=== PATIENT | male | born 1980 | race Caucasian/White ===

== ENCOUNTER 2023-06-10 09:37 | Outpatient (OUT) | payer OTHER, SELFPAY ==
--- NOTE | 2023-06-10 09:45 | MR_ITS ---
[address] [address] Patient Name: ORIN FITZGERALD MRN: [id number] date: 1980 Sex: M Assigned Patient Location: MRI Current Patient Location: MRI Accession/Order Number: [id number] Exam Date: 06/10/2023 10:00 Report Date: 06/10/2023 11:11 At the request of: NON-STAFF PHYSICIAN Procedure: MR lumbar spine wo con EXAM: MR lumbar spine wo con HISTORY: other intervertebral disc displacement, lumbar region M51.26 COMPARISON: CT myelogram lumbar spine October 30, 2022 MRI lumbar spine 05/04/2022. TECHNIQUE: Multiplanar multisequence MR imaging of the lumbar spine was performed without intravenous contrast. FINDINGS: Alignment: Approximately 3 mm retrolisthesis of L4 on L5. Trace retrolisthesis of L2-3 on L4. Vertebrae: Vertebral body heights are maintained. No marrow signal abnormalities to suggest neoplasm. Conus medullaris: Conus terminates in normal position at L1. Normal signal and contour. Degenerative changes: T12-L1: No substantial canal or foraminal stenosis. L1-L2: No substantial canal or foraminal stenosis. L2-L3: No substantial canal or foraminal stenosis. L3-L4: Disc desiccation without significant disc height loss. Small central protrusion. No substantial canal stenosis. Mild bilateral foraminal stenosis. L4-L5: Disc desiccation without substantial disc height loss. Minimal disc bulge with broad-based central protrusion slightly eccentric to left. Disc contacts but does not displace or deform the bilateral descending L5 nerve roots. Mild left and minimal right facet arthropathy. No substantial canal stenosis. Moderate to advanced left and mild right foraminal stenosis. L5-S1: Disc desiccation with minimal disc height loss. Small central protrusion. Mild left and minimal right facet arthropathy. Moderate left and mild right foraminal stenosis. Upper Sacrum: No focal lesion identified. Additional comments: Visualized soft tissues of the abdomen are grossly unremarkable. MR/MR lumbar spine wo con IMPRESSION: 1. Small disc herniations at L3-L4, L4-L5 and L5-S1 detailed above. At the L4-L5 level the distal contacts but does not displace or deform the descending bilateral L5 nerve roots. 2. Moderate to advanced left foraminal stenosis at L4-L5 and moderate left foraminal stenosis at L5-S1. Electronically authenticated by: RIAN ROBERT Date: 06/10/2023 11:11
== END 2023-06-10 09:38 | disposition home or self-care (01) ==
LOC: MRI 09:40
PROVIDERS: PCP Family Medicine
DX: M51.26 Other intervertebral disc displacement, lumbar region (principal); M51.27 Other intervertebral disc displacement, lumbosacral region; M54.16 Radiculopathy, lumbar region
CPT/HCPCS: 72148

== ENCOUNTER 2024-07-26 13:23 | Outpatient (OUT) | payer OTHER, SELFPAY ==
--- NOTE | 2024-07-26 13:27 | MR_ITS ---
The [address] [address] Patient Name: ORIN FITGZERALD MRN: [id number] date: 1980 Sex: M Assigned Patient Location: MRI Current Patient Location: MRI Accession/Order Number: [id number] Exam Date: 07/26/2024 16:40 Report Date: 07/26/2024 16:46 At the request of: ANSHU HOOVER Procedure: MR lumbar spine wo con EXAMINATION: MRI LUMBAR SPINE WITHOUT IV CONTRAST CLINICAL HISTORY: Intervertebral Disc Degeneration Lumbosacral Region COMPARISON: MRI lumbar spine 06/10/2023 TECHNIQUE: Multiecho imaging was performed in the sagittal and axial planes without contrast administration. FINDINGS: Vertebral body heights appear maintained. No bone marrow edema. Spinal cord remains normal position without abnormal cord signal. No paraspinal mass. Visualized retroperitoneum demonstrates At L1-L2: No posterior disc pathology. No neural canal or foraminal stenosis. At L2-L3: 3V with hypertrophy and facet joint degenerative changes without posterior disc pathology. Findings are causing mild bilateral neural foraminal stenosis and canal stenosis. At L3-L4: L4 diffuse broad-based disc bulge is present with ligamentum flavum hypertrophy and facet joint degenerative changes causing mild canal and moderate left and mild right neural foraminal stenosis. At L4-L5: Diffuse broad-based disc bulge is present with facet joint degenerative changes causing mild canal and bilateral neural foraminal stenosis. At L5-S1: No posterior disc pathology. Facet joint degenerative changes. No significant canal stenosis. Moderate left-sided neural foraminal stenosis. MR/MR lumbar spine wo con IMPRESSION: Multilevel degenerative disease as described above. Findings are similar to the prior study from 06/10/2023. Impression dictated by: Alexander Chavis Jr., D.O.07/26/2024 4:46 PM Dictation Location: [place] [address] Electronically authenticated by: [id number] Y Date: 07/26/2024 16:46
== END 2024-07-26 13:24 | disposition home or self-care (01) ==
LOC: MRI 13:23
PROVIDERS: PCP Family Medicine
DX: M51.26 Other intervertebral disc displacement, lumbar region (principal); M51.27 Other intervertebral disc displacement, lumbosacral region; M51.369 Other intervertebral disc degeneration, lumbar region without mention of lumbar back pain or lower extremity pain
CPT/HCPCS: 72148

== ENCOUNTER 2024-10-07 09:20 | Outpatient (OUT) | payer BC, SELFPAY ==
--- OUTSIDE RECORDS SUMMARY | 2024-10-07 09:26 | XMS_ITS | CCD ---
Author Organization [facility] Care Team Providers Care Senior Coldfusion Developer Name Role Phone THIERNOC, DR LAURA Admitting Unavailable MISC, DR LAURA Consulting Unavailable MISC, DR LAURA Attending Unavailable HOY ., DR BENÍTEZ Primary Care Unavailable HOY ., DR BENÍTEZ Referring Unavailable CHELI, DR PAVAN Oh Consulting Unavailable MISC, DR LAURA Admitting Unavailable MISC, DR LAURA Attending Unavailable CONCORD, DR MARITZA Wesley Consulting Unavailable HOY ., DR BENÍTEZ Primary Care Unavailable MISC, DR LAURA Consulting Unavailable PAY ., DR IGLESIAS Admitting Unavailable PAY ., DR IGLESIAS Consulting Unavailable PAY ., DR IGLESIAS Attending Unavailable HOY ., DR BENÍTEZ Primary Care Unavailable Anu Diaz Unavailable Jackelin Montana MD Primary Care Provider Krysten Saleh PA-C Unavailable JACKELIN MONTANA Primary Care Unavailable YAMILETH SANDS Attending Unavailable KRYSTEN SALEH Referring Unavailable JACKELIN MONTANA Primary Care Unavailable PIERRE COOK Referring Unavailable Jackelin Montana MD Primary Care Provider [phone] ROGER HERNANDEZ Attending Unavailable JACKELIN MONTANA Primary Care Unavailable ROGER HERNANDEZ Admitting Unavailable ROGER HERNANDEZ Attending Unavailable JACKELIN MONTANA Primary Care Unavailable ROGER HERNANDEZ Admitting Unavailable ROGER HERNANDEZ Attending Unavailable JACKELIN MONTANA Primary Care Unavailable JACKELIN MONTANA Primary Care Unavailable Krysten Saleh Attending Unavailable Allergies Allergy Classification Reported Allergen(s) Allergy Type Date of Onset Reaction(s) Facility (1 source) Acetaminophen Drug Allergy 4 [facility] Repository (3 sources) Cinnamon Preparation; Translations: [CINNAMON] Drug Allergy 4 [facility] Repository (1 source) Latex Drug allergy (disorder) 4 [facility] Repository (4 sources) Acetaminophen; Translations: [ACETAMINOPHEN] Drug Allergy 9 Vomiting [facility] (2 sources) Cinnamon Preparation Drug Allergy 9 Anaphylaxis [facility] (3 sources) Latex; Translations: [LATEX, NATURAL RUBBER] Drug Allergy 9 Other: See Comments [facility] (1 source) Latex; Translations: [Latex Allergy] Propensity to adverse reactions (disorder) [facility] Repository Medications Current Medications Medication Drug Class(es) Dates Sig (Normalized) Sig (Original) baclofen 10 mg oral tablet (2 sources) gamma-Aminobutyric Acid-ergic Agonist Start: 04-28-2019 take 1 tablet by mouth every eight hours as needed baclofen (LIORESAL) 10 mg tablet Take 1 tablet by mouth three times daily as needed (back muscle spasm). 90 tablet 2 04/28/2019 Active Comment on above: Take 1 tablet by jaki th three times daily as needed (back muscle spasm). meloxicam 7.5 mg oral tablet (2 sources) Nonsteroidal Anti-inflammatory Drug Start: 04-28-2019 take 1 tablet by mouth once daily as needed for pain meloxicam (MOBIC) 7.5 mg tablet Take 1 tablet by mouth once daily as needed for Pain (back pain). 30 tablet 2 04/28/2019 Active Comment on above: Take 1 tablet by jaki th once daily as needed for Pain (back pain). OXcarbazepine 150 mg oral tablet (2 sources) Anti-epileptic Agent take 1 tablet by mouth once daily at bedtime OXcarbazepine (TRILEPTAL) 150 mg tablet Take 150 mg by mouth daily at bedtime. Active Comment on above: Take 150 mg by mouth daily at bedtime. traMADol hydrochloride 50 mg oral tablet (2 sources) Opioid Agonist take 1 tablet by mouth four times daily traMADol (ULTRAM) 50 mg tablet Take 50 mg by mouth four times daily. Active Comment on above: Take 50 mg by mouth four times daily. Completed/Discontinued Medications Medication Drug Class(es) Dates Sig (Normalized) Sig (Original) gabapentin 300 mg oral capsule (1 source) Anti-epileptic Agent Start: 04-28-2019 take 1 capsule by mouth three times daily gabapentin (NEURONTIN) 300 mg capsule Take 1 capsule by mouth three times daily for 90 days. 90 capsule 2 04/28/2019 Active Comment on above: Take 1 capsule by mo [facility] three times daily for 90 days. Problems Active Problems Problem Classification Problem Date Documented Date Episodic/Chronic E Codes: Natural/environment (1 source) Exposure to other specified factors, initial encounter; Translations: [EXPOSURE OTHER SPEC FACTORS INITIAL] Onset: 10-06-2022 Episodic Other nervous system disorders (2 sources) Other chronic pain; Translations: [OTHER CHRONIC PAIN] Onset: 10-06-2022 Chronic Spondylosis; intervertebral disc disorders; other back problems (4 sources) Other intervertebral disc displacement, lumbosacral region; Translations: [OTH IV DISC DISPLACEMENT LS REGION] Onset: 05-04-2022 Chronic Spondylosis; intervertebral disc disorders; other back problems (9 sources) Radiculopathy, lumbar region; Translations: [Radiculopathy, lumbosacral region] Onset: 04-28-2019 Episodic Unclassified (3 sources) LOW BACK PAIN, UNSPECIFIED; Translations: [LOW BACK PAIN, UNSPECIFIED] Onset: 10-06-2022 Unclassified (1 source) Chronic bilateral low back pain without sciatica; Translations: [Chronic bilateral low back pain without sciatica] Onset: 06-11-2023 Past or Other Problems Problem Classification Problem Date Documented Da te Episodic/Chronic Sprains and strains (3 sources) Strain of muscle, fascia and tendon of lower back, initial encounter; Translations: [Lumbar sprain] Onset: 04-28-2019 08-07-2019 Episodic Unclassified (1 source) LOW BACK PAIN, UNSPECIFIED; Translations: [LOW BACK PAIN, UNSPECIFIED] Onset: 12-27-2021 Results Test Name Value Interpretation Reference Range Facility Employee Health Noteon 08-18 Employee Health Note [id number] 30 [id number]# [id number] [facility] Coding Summaryon 07-31-2024 Coding Summary HTMLBase 64 StxpebdhWAo1aNe+PGhlY WQ+UZ1XUFOjB44gdLFseE 8lU3HQSRxZDadfVGUCVBw RXeIbejWnXQ1mkUPlMLYj IC8+LP2aIKQmKcinbOSff 3L7dIO1Q61xiq2lPPusrT S5JTEvRjAvcygec4rlxYs 6IDcuNmluOyBt NKViaI14GPQ2wZ28Sp47u TNqgCQuf2eovBe0EmHiIV FvXMM7cNlyKXlcm2HrCBE bQ36xuUQiy8O3 XFFrgRyusJNeExQuvPV9w R8gZNsvqlcmy3gauetoEb f1vw15wSQyo1E4bEP2Y2T nwgI2AQMjmARg BbelgKSUmK5vkpijo1qzx ummJgGaCHNiWPm0PFx5EO FziUotAaQwAU75JNF3MWD bazLhX5FiFEEe kTqpHyL4i3Z0Tw3FV2RPY sdiT5ZCQEMZJEwdzLT+PC 22tw02B4ZuSygaSpb4AFC yLTL9tOU6fP9o IPXfQOpdy6F8xIN4V6Ebj wDebu1ad8fyGOCbGDonH7 2sjEFpb3Q2XXDduVN6EFU ejAioVoGntW02 Oyc+HEVlhHjjg2TuQhdpb 1vwu6qjyFt5DrelZUXttt OwbBdjOTR9w9RrOi9jXZW vtRF3dPW1mH7v XwAzUxH5EHooX238VlJwi GNfJfgkG87uX1CikNT+PH LgVkb6LXJkkAmiKP6nA3M hZGRpbmctbGVm fZawMJ9yPSRviozwCVFts Y7dIHQpE9e0BkOwIiK5TX mmJ7CpMROdgpgzXx06pL3 dPjQpYnP2OBvz L7XruzZ0GQWiuSWdVOwcS IG2R32vc6Q4PKWtMKDpLS F4qWI4uY8vjTnymemthBO mdDsgdmVydGlj QNazSQlgI341GCKeeBivA kNvZGluZyBEYXRlOiAgMD MvMTAvMjAyNTwvdGQ+PHR dCFV2kZiuUGYz zCSvMJhhAb6znWqbwZakO Y7nLRKlbjayXKDuqL1vHK WoeQPkqIaaPX7cUWVfnit ux270WmQnFHA4 WTOjnLCnU2JwgD0sUgArY KVfFKAiI3MyuSSjHKhkU6 87TSenIuR3VMInmzOrK6N sLWFsaWduOiB0 v2C1Dt9Vf1DyxngfC5Cwm ATcYlKwMuzyELp7I6FkIn wvdHI+NC68NKMtHY68NCq 0RWZ6vPjpFSrv RIHsQ2SsaF6qBmDmSLLcT GRkOyc+PHRhYmxlIHdpZH RoPScxMDAlJyBzdHlsZT0 fFj0mZMCyDPHp jAvcjORlMqLgg3bdENNnZ JtzXR0jyCraI6StqAA2PS Ofp0j9Gr38Q42sC7FdyXF +ZVQrtZV4aHZ5 vB5fHoNmCsI4OZqqP652D dGkuGCjEuraq0blq8wpoO k7DaK7VIWoqyAcmWpaHWB 6x2PcKm91C97t IHdpZHRoPSIxNSUiIHZhb Ajmez5xhR4jKs6+PGNvbC S7hOZ1sL0fZaZzZwX2DIx tG255JjFcwATz Yycxx6uxo8avzMj9MbAkA OAffyWdjFfqKPQ0m3WlIl 37A8RrlPglo4ZmHvr5rm7 5hZEoy8H1hGA0 M2WtAIUgxhnwkDUytAqgS H8oQZNvxyqdTTCirW8qLP UiX2o8ReIzKhA6QIujJ6L xnxB9SBJinLAn LDJyaWAJhF6ucdfld3jhu eewYzZiUDMoPTi7PPf8CZ OexFdzOxGbMHD0VaF5TXT 2bMRopL8zyMbf ydmysU3iZcp+RVP0vQHhw XKZXT4uKkkmyVW+PHRkIH H4tIomDRbdCWItsR7aZJE aV8l0XoMyDvO2 AIwkO4KgxcQ9GGVnhXSuY OJudEENrC9cpxpzo7udie ruErOtZOMpASp5HKo8VDJ saWduOiBsZWZ0 YmE5KHI2gWAeoH3bjXvqs jqrdK0eYyi+QmlydGggRG Z2SLa0F4YvOlt9UAMpdLe hPP5fyRJdQAzu Ap3rtSowgJpsUA5oTYDdm qvfg151QsTad7xlFTPbnN NnXBsbNWF6P35jz5U5EZK ePDWoKIU6vNU3 dC8jbXkhtzkigZAluCqdf aXetGiwPLcnAUxeK161PD VejAbnTdTpYCl4L5SkBxl 2SGKmaKstLG0p jLLjZDjbBp3maAqzvHvzO L7fCVRquvudm201NvMjk0 nmYMHvjUUpWExrVNS2I04 ha8N9VARvHNOb TFX1vJO3aC2acThxdctxd GVmdDsgdmVydGljYWwtYW kzZ850HRPukRsdImCwvXy 7L8UlBpu7OCTx vSybIG4hyRTuSXqpNv2hz CayaSxaBP1dJONwxalif3 61PlAra6lrWEZakNDzWBe xQDI7I25we6N6 BCLvEWZsEEU7iTD6mG5rh GlnbjogbGVmdDsgdmVydG adMOajVLtaM893NDRmmGo nPlBhdGllbnQg MEikECk5Y3AlLinsyWN+P N26RTXyQB68kCCuuAXfb7 jtnAi5GrVgMBFlNPJ6uAq jLVokm3UuGNXn F40wiVFno0Q5KLAryCdyx NMsGqTwiAX1vL6rRTigbl ccp1aqplvxLieqc3jlji5 7eX97U34fUYgj ZHRoPSIzMCUiIHZhbGlnb v2yoB8dHn0+FLNjmSO7uX O6pH6fNYCaUuG2ANahS57 9InRvcCIvPjxj x5yaz0qayZm4AxA5HGNgh vWlgGvxVMF5k9NcOj22B5 9sIHdpZHRoPSIyMCUiIHZ dsNpujr7bdJ4i Ii8+VVZwkPH9zVX2vZ5uO jFgGbL9EMxwO043ArRqfA PxLujrF01hH5HjiWT+PHR xQjw9BPWjxUgh MS4qhZTuAPwkCc8oREK4P eFaJyXlBMieM3NkHNPtrh xraaftfTF6UJDxCLCmiM6 2Cc5lgAdgNFWr rPBQgF2xyrzpr5kfumuwK nTpOTDjCRm5TUe0SEYxkV yjWmZsWSB2GyG4RXP6cAK rrD2jiXfdgbix zP8sB0AaBOMxbzzcNv89f O3uUoIaJgY5WVtgCjq+SE qKKC0WPEXOBBJBCtJNFRD DStO8M6NkNva2 SVLkwCtbKM5pcQTcCYaoX z0bxFizlWtsVN9pKKWipj tpCZSntD3ePTQznONzbTu wUE7lWGYhhldi a516TvJpKLJ8UPUwaGEiU 5XnfM5rSmSsQCJtEYZrZ7 MvcCXlPGbrP396XGwrQnN 1TBQhdgVeU7Ih VCKwsKvvTlI1x7T4Fm0iX o7pLe6lTPa2WG90FS54eA Bhy2V6uOC7H3GxWCWrdge wnrgqpJJ5ZCEg MADjcQ35nIShQJukCd5xu 1M9v416TMGyKXUwlV98Ir 7sgAvpZITilMNOyD0lsxl zt6ceezlaMzOk WWKfVQt1BZd1GBGinSegI yGyRNK4KdN1SFG4hHCgkQ 8pmQiwababtK0zJux+NDU fWHRyjeT0G0Xq Nip3SNAxqLqjVH9pcPVmM TpaJw2wyJgvdQdpZU4zFP PdvhqoHTPopS9mFTQvtBA upDpcSP5mCJEq smmcj054JlBlGHZ0QUFhi DRjN5IdjG1pBmJfFWZqHV MhV3PcmPIdNHmmO438LLu iWjR8DQVaxvRl A2ThNKTepMleMrY3c8L0Q k2BTYxWXZ61TG40dNRxx3 T5oVW0T2TjRSNsfgnhxqp zoZH0EFQxMMTp nZ17pDJuHDlrOv3id7T0v 966WOJiYEWztD24Sa3jqV isYSHzqBMIbE4aawzls8y vcjogIzAwMDAw WRr7OTv1MRVleNewFrDcT JC6OkO8OIZ4nXMhlB9ufG mpznligO9fEci+F0J7D3H kPjwvdHI+PC90 YWIxXS67vGQzgIKmr9nli Hv1LwPgMOIwEUU5vPiiTX ulk2ZxUGMcO91ksLMpe5R 6IGNvbGxhcHNl UpSjiMT1pL3eTTwknnumy 5cewqskViwla0yefz18mK 17L94jNErgBYWxGONjFDA vOIHvkKxnoq8n jW9pQz9+AYKtgZG8zOL9p D2wZdUiKlO3RPbeW703Ew VnuJZwTjyvv3gkd0pntCa 9IjIwJSIgdmFs yRotUPP1y7IoLp43Q16rM HdpZHRoPSIyMCUiIHZhbG uzim4etE7xGz3+XS9an4q amc00jG86wNB+ KJQyMGN7wUpmUDsvMRRff H3wLLocFiJ1RSUsTxDheD 54xFUmHVzcPv0tpQrezZj qGI2uQCUwgmyd t620PxNli7xaTGWzbIIqR JszJTX3E74yo2T5LFFzPX QwIUT9bFJ8uM1ggZgiivx gbGVmdDsgdmVy lGikCEasIOlmP478GWLad MouKcLteKVlP2youeZQFQ 1lOjwvdGQ+SYUiNDT8qQr tFNjpLSXcmX3d NHEtG2r8GeZuDrT7WYsgQ 9NsjlA6SXZboUOlTAImbG KAmN3ixychv2jkeaeaYhG hCJIcSWy3SZq6 IMOxoTbqOmGoZNZ8IlB4R LK2dEOtjH8qiPyhffktdW 9wOyc+RklOOjwvdGQ+PHR fHNT4hXqxYCjy FMDxwC4gEALyS9b2CrLbF xP7AOjlC9LagcY7MTGtuC KyJHRylVUZdH7iftqbn0g vcjogIzAwMDAw QCu7UZu5GGGvoNlmWvHzK NQ2CuL6KOB1wGFclV1qmG onepnmiJ4gEsc+TVJOOjw vdGQ+PHRkIHN0 nMwgCWjaWBVoxK1cLNJfQ 6m0TsGtRpH5SFwuS4Ddyz J0FWPwjAQxTGTufPAToF0 afuwtg4eywmwm IlQjQAIqQAi4RBl0TITko WviKhUzJVK4DyP9FNU7pJ NxjQ6dzFozadukgO4pYdo +ERN9JCX2IE52 YN07C8ZoRnficTXloCF+P HRhYmxlIHdpZHRoPScxMD EsPiUypQflVT1aZz3jSEZ yLWNvbGxhcHNl OiB (more content not included)... [facility] Coding Summaryon 05-12-2024 Coding Summary HTMLBase 64 ZjvgtjmhULx2cRa+PGhlY WQ+RE8RTDOeJ01niVCewK 7oY2HJHHtXKgcoSLOIPGr CLmAsbdHxGR4kzVRkEWYm IC8+ME0zMGHhEbivyFOjx 2I4jNI9F58afg8qSEsnpG X3YPMzFuAklugrf5jyzZn 6IDcuNmluOyBt IHBhbE48URF9rA83Ld84b XXchCIrz3mfrGl3XlFvCP AiWYB5mApfZPstf0XaGZZ lP27gjYYcx4E5 SENetClfbFHtFrBgxNQ5x N4mFIkackigs0gcwixsNa r5kt60wZNdg7K2aFG4I6K cfyY0KNPxvCQa ZnlarNBQsV0pumfsc4oeu yjpQeKmIVRrNAg3MTa8FP ZyvXptQsEpCM48KDP6MNY gfaMpA9ZeVLMb fQvcMnP8w8J8Ew2KN6HCY mjrG9MZKKUKGPojfJP+PC 80uh27P3GdTmgrAas8VFF hWRO6zKX9aN8j TYTpDQzmb0Q8eTR2A2Lsh xQvjb6zr3goRNXsSAfmJ2 4abPUnr6Q1NCOfyPU7NKV ouLxfLfIuiF81 Oyc+NAZqpHvie0WaBgllh 6veq6vawId4DrdbRWObgw KezScdDRK6h9VrCq6pABA bsKB5gZU8nH4g UoWwLjN5YNggV249YuAnq IXdNgkaL16aK3FxeDA+PH HjAsk5YSHpuZoeKQ9dD0N hZGRpbmctbGVm tAknDG8sLDBdlyneEXIqs Z5rTLKkU0e9NmEwSkE7ZZ alU5BvBEJfbupgSr05fL2 eClIcVtC8VNsn E1UqjmS7TNJjyAOjWYtpZ DU0L80hb2J9FADuIFFzEC E2vRL1zQ0haVseemgafCS mdDsgdmVydGlj TAutYShxR539ZZFmuMbuG kNvZGluZyBEYXRlOiAgMT IvMjAvMjAyNDwvdGQ+PHR rSWO7jWeiCDUx jNRfXLaoXq9ctRrwgFcaF P7zJEPaihfkGNBnvD1yKT YddHXzkMmgGK0rHZNcerl uw013IvVbCYJ0 YLYkcZExU2YtxK3mPhWrD PYbSLTgQ4LsuQWyYOhcT2 23LVouOhB5FBJodlPfY4H sLWFsaWduOiB0 g2G5Ax6Re7YysehzN2Cgx UTtYxFwKlqnVCu9K3UpVk wvdHI+ON07EPZiZM77ATc 3UOV5dEtzQPwp CQLbE1ThaE0bZoShOWZoW GRkOyc+PHRhYmxlIHdpZH RoPScxMDAlJyBzdHlsZT0 pMn9oRNKzGBFm jJmtwEQcYhSzm5fmCXQeH WdkDG0loQjvP7VvcXZ9AT Aci3j2Bv66P10lD5IfjIP +KUWruJE7uWB5 fW5gWuTmToS1WKxlV485K bUcsMRpNixcv2ncv3okdY l1XaV8WQNgvpExbQevOCE 2p2GqUy67F69c IHdpZHRoPSIxNSUiIHZhb Exler6dsJ5xOa6+PGNvbC Z8aIP5bH5uKzOzEjN4TFl xD334QaAxpLOb Actxr6nfy6bogPe3LyPtQ JVoefAfdKkvWZK3b6NsTp 17V3AwrLjzd2VgDzn7ty9 9jBDsf8B4jNP9 M3EhZUJxkrtdzWEavNczL N9tHMIdigllOOKogZ1tKC FiL8k3WbUhKeT8KNmkB6Q xetP5YRQhqFHt QIQygHRRuH6vqabzv0buc sguLdMaVJRqQBz6VRr8FD XbqIvjEhMeYJO5GdN3UYK 6nXGqeJ4zpJxh ubruyD8xXne+LCW8qFBjw GZHRA2oRjrlvWK+PHRkIH V0gOmpSHinZHYmkO5uUGU lW2s5MyYaJmH8 JHydL6FnivI4XZUxvLHmH JIuzMZMaZ8huuptx7uvqo eqPmLvTBUwZIf1ARq4XKK saWduOiBsZWZ0 FmA9QKX5gYEorQ2imJzvl jmjhX7gChj+QmlydGggRG G3EWx0F4QtHkz7TJPxiGf xKE2edSEwOOef Sg6pqJcglEowTK7hTYQip tqcf591EwEvb7iuLAMeqE EeAEtvYKK2R35hm2T3CHP pWRLrNLK0cGL1 qY3hhLtpqeftvJQieXxwe dUgmQduMKdhNDtoE552IO WxmPwcSjWtODc0F7CuOwe 4WJAqkGyaGV3g bHDwFSjwWb5qhKoieJyeB S4qFCJjwxaxu463GeNpq3 nxGDFpvBNySMldGYX3Q68 me3B5ULFhFQGg DNN1lPV5vF4hhWmsslsux GVmdDsgdmVydGljYWwtYW hvM657HPRexLjcQpXshGl 1S5UaUbp0XFSm wKwaJM0btPFcVSlbWy6ll HjwyQbuPH9gWVOvoglcu9 81LcNbo6ioFZSfrFPcUTy lQJX5S45ay8T4 WEUrROZsZLT3pSD2rM7ts GlnbjogbGVmdDsgdmVydG rrUItrQIvuP564VOYyhQq nPlBhdGllbnQg TKhfYRe7L2FkOddmlIQ+P A51XZWuOR14yWFuzJFwt8 aijOs9MiUvLNBrJUK2xMn fUYayj6ZsETZl B72svNOaw0P0GQLnzNdgw LSjTtQolYG5mJ1sCNsceq exm8wrfwmpHvgni4uwul4 1tC53F51kLZiq ZHRoPSIzMCUiIHZhbGlnb c4pzL3bWt5+TBHacLX7hD K8mU1jTPWsXcQ1YQjdY50 9InRvcCIvPjxj t6opr3kxjFz6BuK3DEUbb pTinVmrDTL0w9UvNd30I1 9sIHdpZHRoPSIyMCUiIHZ axJsdac4btP1s Ii8+RMQcwDO0lHQ5bU9xC hEmKzT6ELadL667OzVmuF RwXrarR72jJ5FaxTJ+PHR sBma5LDJflOuo ZK4umSBsMJqvWc7qGUD3N hLbQjFoQJgyH7NvFEJnzw sqgfwmzPF7JNIqEEKxrF8 0Tk5isNemNXPk hBETjV9cxcdvq1xekjpfS gDdLRYmZNg7ZWe8BZSngU ijMuUlFCG5XeI4LEW8lTR jiB5rmKxveuck uC6hY7AsFDNgovcuWd74w V4vKmNjMtW1LWiwAry+SE nSFB5FPMISRFNLVmWXICR KAoE6F4KtRmx3 YAMbzRoyBO5qbTPwFYmkE v4ogSyjqSqxJL8uTBXldu akUZNdlD9hRRAjhNBmdTk nOZ7uMQCoovvy s771AvGsJRB6HCNpeYItC 7AguA8mDkSqYQXwJOZnG6 OpnTVvGOfvM247OYozYbN 0YLLnteWbD4Yl OLNpmOefFzR9a2H7Ip3aK m4wSq0nSRg6EC14GX30lC Gpf6W2pHP4N3LrIIRxybz nxgiywQL1GWRw VSPopM20vAEiXNlpVf0cy 2T3y294FYFySLTqmD38Ka 9pwGkpYZZayPRFlN3sqqn yy7dfxynzQjPb SLCoZXo3UUi3CBBxcFwxR mCcOGA7GeD7CZE5dVSdfI 0cmDdcidvxlM4sOts+NDU jWAGcztP2X4Xn Nxu0GHJvsIucFJ7tlIZhO AgcAu6zbRqqtWryAP2xIF NcuduuWVUnwM4oODEmkWV ojWhiOW5jCKEk xffdf014SaFsSMV1LELyi YTuV8CueW7zGjVhRBLhAW DaH8NykBDnXOypH665HHn uYcI9ZSHdaeCi I1EkQNEgbKxaAwG3t8H0J e0VDXuFFH74HW44gODqm6 X8wMU9L8CyGUSiwixosgf mtXB7QKLsYHXe qB06jUSxCQpbZh6lf6O7a 341YOZbCDMwwC36We5itV zfUGEonHTIhX4axtoot5c vcjogIzAwMDAw WEp4RXg6ZAQuvIipGpZuV DF4EvN9LXK6nAUwmJ0bfF xstutvzE4mCsi+L5J0J4P kPjwvdHI+PC90 KUOjYT20kXOviKSbv4xff Yp6IoZxDTLtUSQ6oJrxMZ zgt8LhPQWqL42laGVxg3D 6IGNvbGxhcHNl HdTiaKS4wK6iLHsdacgzs 4prgszlTsruv7cpxg02sB 27N71qQNumQZZbBNAyWTW iUMMjzTsppa9w oG7zEn9+ZXDdnBH5oPG1k J0qDsUiRoL8VNkxH294Lg OehWXlXaciv9lfj0kiaXd 9IjIwJSIgdmFs aGrsALD2c0CgQk70A33tT HdpZHRoPSIyMCUiIHZhbG rdqi6vpM6nWt3+FH7gv5x txj28nB68gET+ JROkTUZ8dHtvTDsfJTMkt B7oBWkaThL3CISwSmLmoQ 05kWKhTCnoFj8puZfhoLw kQU9kZRSksooy f186XsYcb5qpKDRzdZWiO VmkQDT8W48gu9S1PXNbID OdMOM5nFE3aI7wyMdrcrr gbGVmdDsgdmVy qGgfEVcsWLpjP171RLYkv YcpRgRdgJGvA5eucaDCOP 1lOjwvdGQ+NXRsEVM5nEe cCMuyTNHsuD3x AHPkR9d8EkAxPdQ2EFqaO 2QcsfR6DUOavCInAGIarV YMqZ8ebkifb1gnnvlpOiH bEFMlTHr1GVg8 HHRqqGwjYxMqHXK2SkM5L AC1xWHfcT1moEpdkknsaX 9wOyc+RklOOjwvdGQ+PHR lOBK6sSevOYbh BZJkuI3jAPNyR7g8NtOqQ qP7REiaS3AxdfV6BHAelU FkBZGpwXHZdI8membah8g vcjogIzAwMDAw XIb5IAr6RGPdxXdzScEqZ MZ3RnB0JPO0sDFnnV7lmH smjdnzmB7aRht+TVJOOjw vdGQ+PHRkIHN0 wXxmUZsfXLQfgS5iKLItP 5j3XrMeJvZ7IPltJ1Eyjj V7SYDfpXVeFGGwuOBQbX6 qruktb0dbpkov YcJoKTGfZIt3UEc5WUBgv GsaXmErIFB7PaL2XQW8xB FlxA0cqGfmzmiriG6yHjm +NAB4WTK0KC65 IA12O9DaCweriSUgnBW+P HRhYmxlIHdpZHRoPScxMD SkBjFosXcjGX6pUh0cKDB yLWNvbGxhcHNl OiB (more content not included)... [facility] Coding Summaryon 05-05-2024 Coding Summary HTMLBase 64 WahrjbiuGYo9xMj+PGhlY WQ+YI9RCPYsM40hcHIpxU 8hV8FFCQzICmblGRRHQZk UUtQesuTgPQ3toLJrXDMd IC8+KB9uYSUsJxiplTAmx 6Z3jTI5Z91fpo6cCUxqmT L0TXItCgYqdhqlv1vvmPf 6IDcuNmluOyBt FCAtvE14LSG7bN46Yq11k PGxkSLag4rpvXy3SfEfNO XgOXL9vQgrDSbwm8QtUNM yM50kxZXzo9V3 IKJdzCcfcSHdCdSeiTG4r D4vHOobqxibj1mcqwfsVz o7qm58dHWfl1J9hAI4G9Z pzgS4YBCxjYVk UvmkmTSMfK9fmrelw1cad sffBfAxGDWcWSi3CQc0ON GwlOxqWuUjRZ84UYQ0EDL mjtCpR3QqXUSu hYmsTlT9n4F9Xc7WS1VJR pdrK0YTOLXJQWaqkWF+PC 21me98T1WeWuecTsb5ZDG iGST4rMF8iI7a AREjZQsfc3N8aPC8J8Fgv wLrgo2hy7jaRCUsQDinQ6 4svBOih2K1PHXctFM2GCR ytGxtXeDkdD06 Oyc+PRBrcAdci4NgFaftn 6xjt0skzJq0LlcaEPMhuy HacEhkFYM6t3EtHz8jJWW unAX9dRB3nM1c AjTuCrQ3MCpbW264NdEjb QEzSnphT15vK0XxhQY+PH GaFuv3ZHLtpTrqCX2zR1E hZGRpbmctbGVm jNcyCC8oMRXeyurfNIGbc G0gUKQdF4b8OsBwJwF4PM kdJ5ReZJPekwmjDv29pW5 dYzXiAhC9FIdh C8KotjL0UDFviYEpPAgdI BS6D63su0P0ORTeAIVdSW J4mZY8gP9qqDsvdldqcDG mdDsgdmVydGlj GBrpEIotV787ZSXzlVmhG kNvZGluZyBEYXRlOiAgMT IvMTMvMjAyNDwvdGQ+PHR hVEA7gLdrNQAl xDGnAZlcIw0phSocfStjI Q3gTCNnkbwiLMZrmF8yYU DebVBesBymPN9iSTZvpep vs148LpReKFE9 TGXkyDPmQ0AqlZ8qSuNmF TFuNOAkZ2SnwILhKPtqK2 69BIfvOmK7VISgmsQmK2W sLWFsaWduOiB0 j9A9Kl9Cy3FjidhoU4Ifm ZHpCaRuRbmePUd8S9ChGl wvdHI+EC19VQWwVJ15CHo 8IQZ4sEbwETct RHPyT0BqyD3xSyPcJCUfY GRkOyc+PHRhYmxlIHdpZH RoPScxMDAlJyBzdHlsZT0 wHh9mXEDrZNLb fAixiAQqDoAlx8aaXPNuM KxdRQ3xrExdH6HwnXO8KZ Pjs1w6Cp56T61qQ6CelXA +ORXlxAM3yPH8 jO2bPtQuTzK1GFwgT116U cFmpBAjZuuvj2zsj2sbgV c0ZoP2PESnyqEfaRisGHI 9n7WtCa56T92y IHdpZHRoPSIxNSUiIHZhb Nbcut8fzT9wAl8+PGNvbC Q4xOK1jX2jZdOjVrU5AJu hJ712ReXvaRHv Jrvbq1yvx0jzpRj6TzFdK ZLowoEfdSfbPXI6x8UzNi 64K2OigQrpb4AvCcp8io5 3fZHpm7R5hML2 Q4WmQBTcoszyhSLzdCosX X9oJNVhtprhYBScpE6cIO VfX6n5TzMtPbU2LElhA0J djxK3ZBNljDYm WNBilCBRgR7tqvpea4xjg wyoJrJdUBRrZYj6QLr9OE UfgYozMeSmVVG2MiO8ZKT 2sBZzuT3lmQhd hzvtiH1mSjg+JWA5uBIlg LRBNR0iXgppxWC+PHRkIH Y2zLmmCRgxVBHqqS6lPGX jO1n3CbErMdJ6 NFexZ0YttyA3FJVqbHNpO GLowMPFfX3ldevwq8wzfl eiFsGwYEGfBTt2CNe6BYP saWduOiBsZWZ0 SpV8YJB3xWCmgS3edZkya zywlQ9rNfc+QmlydGggRG I9NPh1Z5QoLhx6HOQaoMp gVB5apTKiBRas Bk4itTthgDemAL3pJWTmm bhdc890OqMxy1djLWIvcW EmGJawYOD4A43cn9L4BBU oYTDhHOP5dRZ2 tI4vjTdahfuylCGuvNgng fApwVvhPBiiSVeoI927TB FrcCngEoAlJRm9L2SzHvn 9JIIgrRcyLP7t vDZiUEjiEz2ahWzoqZlcX L3vFXFpyuqvt423NyNzb2 zdXDFbnMKqTHlkIYZ0M82 kd8J7TRPdNMPd SCI5oSL2vM0upJquamyrn GVmdDsgdmVydGljYWwtYW ezV910QIQxyEgaMsKrbKa 1H7LvBgz0GJZb oJqgPL8szURcJEmgLh7hl RcngEoxDM4qAETyefydf7 14EoLcw8yqVNVfqHWpXZp mGGH3M19ee4C6 HCSsLMDoWOD5fPD1tF9ik GlnbjogbGVmdDsgdmVydG srQAdsJVplB571MAWgnTs nPlBhdGllbnQg VOqjMHw9G8BmZmahdSR+P Q23MOEjNY01uSFxxHDos2 tjiTv4SqLzFOYmFKR5yLk uXUqzb5OjKJLz N81olUNle9P9GRZntKbwc XGiZzAurRO7jR0xWBkafg dxl3pzanzrYmicg3njyv8 5oH98C18xNAoh ZHRoPSIzMCUiIHZhbGlnb f9bvD1wOx5+INVbgGE0fK Y5yV3dRGKjUxK2LIfwB40 9InRvcCIvPjxj k5hgu8zumUl0AkE5APGzn qPdnNzhSLY6c7LsKn22B6 9sIHdpZHRoPSIyMCUiIHZ rkRtwbk6drJ3p Ii8+HBAbrEL9gXD7zA2eO tXlBmI8QUhcL319CxFdwW JhZbkkL00kX6DhqRW+PHR aCyo3EITggWgj CJ1agKHcOJzwQh2dLFU3U bWaXeExCIpkV0NmWHEnwl qrmrewuZK8EGItNRMbqN4 5Zu3jrYlxSHKq xCRBhN7vfvjmc5ivsvrpN tJcZHEtHIw1EIo7NNCqgO veFnMjQMJ1XrX6YOR9pKV lgS5vhBifdigp zI1zK6WfUOHbizaeOi18n T2nPhVpMsY6QUwvUix+SE uEVX7VQPAHJQLGCiLRBIK BNtX6K1HxFnn6 CZXkxDflUY6ifOUyHAclM h8wgLggiCmnZD5fMZDwsz heZRFscE1iQHVtxWOyoDt fMI4cZGEfcqbg o667MtUoHMC6BJAufWZgE 5EskK5jDaMrQSNfVYJtV2 GukUSzKTaiJ329TThiCpF 6BJCmrpXeB7Gx HEJbnRsbGiN9u7A0Of4xP n7mSd4wDRo0EG37NT40yK Jju6W2jAB3O0RuQJHxvyx jdvcbuIQ0WOXl PFXwzL03qKUyIRmxVf7fh 0U9b627YAHcNDGrmC37Hg 6agHdwKNEmfGNHbG1ijlq ui8axiaxjSgOz FPVmKIf4MEy1IFJtnTbvR mVnIRJ1NlW6CNV0tIYrzO 3rnDavbnalmX7jFnm+NDU nCBPyjrN3P9Ph Uly6TAJasGohKZ5lzBVeK NlxXy8jwAokjQckAO5hSV OutiqdTDUagC0uHJTfmQA wkIwsKW5aQDTo gaqti834ZjOlNLP3BKUom ENqA0QgtM5oRiMlAXMoNT BkF9TydPYxDQizF199NGb hFdO2ENAwsuWe L4TaTCTelLvzWgV5f6P0R n1CGJuOPW14JM58cEUow7 H8tOL4B2MwEGFtnrsmfzr mjBK0NQLiLSXf yM64bOUhLWnuLp0kq1Q1a 325FNSeSEPkkP43Bh5wxF laQAAttUUInQ5buplwa3p vcjogIzAwMDAw HNg9PEo3JSFmtHihYoKqK JE0QyA0WRY8zDMzmY0xaS wcjvuixM3kSns+J1S6X1I kPjwvdHI+PC90 QFCpQA04zSDvuMArd2adf Hr5AfDbUIZuPIO6eEmgKW ggj7LeYAFtC08tiTRwv0D 6IGNvbGxhcHNl AiPglNB0kZ7cHKsdzxkth 6hbudsbSqplo2xdxv12nL 78D50dZOvvZGBdSMIhPIW xYNRdtGhbve4w rM4cAv6+QMLqoOH1lFU1s J1oCsJqGjB4NDhaP656Ih YhaCIrSavdo2qrw4ohrQl 9IjIwJSIgdmFs iRtmVCO9y2JzIr51X68wJ HdpZHRoPSIyMCUiIHZhbG lvkd1ybT0fTc3+LJ3jw0g umc11zV19oJX+ WRYbFKL7uVlcFNxbZNYpo P9uXHycOqI8QBNtRoOzwP 29rRTxHOymXk4xzOzgnTq wIX4mMIIogyap m914EtOal0jhIONzfRUsP AwvXZO6K59cq8P1YDJfGY YgRNU4zSL4jD8sxRrjabz gbGVmdDsgdmVy fCkzEVxsISsyQ790UNToq SrzTkDxkZDbT0cgwrXVIJ 1lOjwvdGQ+SWKhLZK1cZw zQDciYVXkxE3v WNBcS9j9KsTaIxM8ZNkqX 7EqmtC3TWNncAWkTFFxeQ DVyZ5omzcyk7wgbqpvQoU tNSHkXZs1WNb5 LCOwpFjeGzHqDEW9VvC5V PD5wKBhxX6jsCvamjincR 9wOyc+RklOOjwvdGQ+PHR rVEM6cOdqUAsx JFIkgF3hYZGfI0k7SnSlK eC8LDhkM1OzosL8SFVjeD IsOEEshWKCoL8ysoyan3i vcjogIzAwMDAw HHw1CPc3EMOdsFgyXuXaO FK6DoY8ITL0lNPyuF2uxY yevnfhtX2qLnk+TVJOOjw vdGQ+PHRkIHN0 wVurXDvdXILbhW9gYTKbA 5r1JrPsAfY0JItmG9Ofse X0ZIPxwBCiFVAxcOYEkN8 ckujnu6uvgvmh DtGcLCYyKMc8KLv5HACta YvdIlXhTZC1GvJ1TXK3lN OupI8sbNogllfbjR1oTta +GVN9RRW6QX08 LR09K3FhNacnlFRkkHO+P HRhYmxlIHdpZHRoPScxMD SzPxErwYzcGK3zGg3wXLI yLWNvbGxhcHNl OiB (more content not included)... Normal [facility] ED Clinical Summaryon 2023 ED Clinical Summary [facility] ? Urgent Care [address] [place] [id number] Clinical Summary PERSON INFORMATION Name: ROBIN FITZGERALD Age: 43 Years Sex: MALE : 1980 MRN: Acct#: Visit Reason: Medical screening exam; [facility] F/U - BACK INJURY Arrival: 05/01/2024 09:03:36 Discharge: 05/01/2024 09:49:00 LOS: 000 00:46 Check In: 05/01/2024 09:03:36 Checkout: 05/01/2024 09:49:00 Address: [address] [place] [id number] PCP: JACKELIN MONTANA PROVIDER INFORMATION Provider Role Assigned Unassigned Oksana Wright LPN ED Nurse 05/01/2024 09:04:17 ROGER HERNANDEZ ED PA 05/01/2024 09:04:19 VITALS INFORMATION Vital Sign Triage Latest Temperature Tympanic Temperature Temporal Artery Pulse Rate O2 Sat 98 % 98 % Respiratory Rate Blood Pressure /79 mmHg /79 mmHg MEDICAL INFORMATION Medications Given: Allergy Information: Latex Allergy; cinnamon; acetaminophen PHYSICIAN DOCUMENTATION DISCHARGE INFORMATION: Discharge Disposition: Home Discharge Location: Home PATIENT EDUCATION INFORMATION Instructions: Follow-Up: With: Address: When: [facility] [employer] Within 3 months Comments: Follow-up occupational within 3 months for reevaluation. Continue with normal medications, gentle stretching. Return for any worsening issues or any other problems. 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; Herniation of intervertebral disc between L5 and S1; Herniation of left side of L4-L5 intervertebral disc.; Radiculopathy, lumbar region; Sprain of ligaments of lumbar spine; Strain of unspecified muscle(s) and tendon(s) at lower leg level, right leg, initial encounter; Strain of unspecified muscle, fascia and tendon at shoulder and upper arm level, right arm, initial encounter Patient Understands: Yes - Patient/family/caregi gladis verbalizes understanding of instructions given Comment: Normal [facility] ED Patient Summaryon 024 ED Patient Summary [facility] ? Urgent Care [address] [place] [address] PATIENT DISCHARGE INSTRUCTIONS Patient Information Name: ROBIN FITZGERALD Age: 43 Years Date of : 1980 Reason For Visit: Medical screening exam; [facility] F/U - BACK INJURY Arrival Time: 05/01/2024 09:03:36 Primary Care Physician: JACKELIN MONTANA Attending Physician: ROGER HERNANDEZ Comment: Patient Education With: Address: When: [facility] [employer] Within 3 months Comments: Follow-up occupational within 3 months for reevaluation. Continue with normal medications, gentle stretching. Return for any worsening issues or any other problems. Medication Information: The exam and treatment you received today in the [facility] Emergency Department were for an urgent problem and are not intended as complete care. It is important for you to follow up with a doctor, nurse practitioner, or physician?s assistant broker for ongoing care. If your symptoms become worse or you do not improve as expected and you are unable to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
[2024-10-07 10:17] LABS: Basophils Absolute Auto 0.1 10^3/uL (0.0-0.1); Basophils Percent Auto 0.7 % (0.2-2.0); Eosinophils Absolute Auto 0.3 10^3/uL (0.0-0.7); Eosinophils Percent Auto 3.4 % (0.9-7.0); Hematocrit 46.9 % (42.0-54.0); Hemoglobin 16.3 g/dL (14.0-18.0); Immature Granulocytes Abs Auto 0.02 10^3/uL (0.00-0.03); Immature Granulocytes Pct Auto 0.2 % (0.0-0.5); Lymphocytes Percent Auto 36.6 % (20.5-60.0); Mean Corpuscular HGB Conc 34.8 g/dL (29.9-35.2); Mean Corpuscular Volume 89.3 fL (80.0-94.0); Mean Platelet Volume 11.3 fL (9.5-13.5); Monocytes Absolute Auto 0.7 10^3/uL (0.3-0.8); Monocytes Percent Auto 8.2 % (1.7-12.0); Neutrophils Absolute Auto 4.2 10^3/uL (1.4-6.5); Neutrophils Percent Auto 50.9 % (43.0-75.0); Platelet Count 203 10^3/uL (150-450); Red Blood Count 5.25 10^6/uL (4.70-6.10); Red Cell Distribution Width 12.1 % (11.0-15.0); White Blood Count 8.3 10^3/uL (4.0-11.0)
[2024-10-07 10:45] LABS: Estimated Average Glucose 111 mg/dL; Glycohemoglobin A1C 5.5 % (4.5-6.2)
[2024-10-07 10:47] LABS: Alanine Aminotransferase 28 U/L (16-63); Albumin Level 3.8 g/dL (3.4-5.0); Alkaline Phosphatase 59 U/L (46-116); Anion Gap 11.1; Aspartate Amino Transferase 17 U/L (15-37); BUN Creatinine Ratio 14.6; Bilirubin Total 0.9 mg/dL (0.2-1.0); Calcium 9.4 mg/dL (8.5-10.1); Carbon Dioxide 27.1 mmol/L (21.0-32.0); Chloride 105 mmol/L (98-107); Chol HDL Ratio 5.7; Cholesterol 223 mg/dL (<=200); Estimated GFR (African America >60 (>=60 mL/min/1.73m^2); Estimated GFR (Non-African Ame >60 (>=60 mL/min/1.73m^2); Globulin 3.7 g/dL; Glucose 104 mg/dL (74-106); HDL Cholesterol 39 mg/dL (40-60); Potassium 4.2 mmol/L (3.5-5.1); Sodium 139 mmol/L (136-145); Thyroid Stimulating Hormone 0.693 uIU/mL (0.358-3.740); Total Protein 7.5 g/dL (6.4-8.2); Triglycerides 185 mg/dL (<=150); Uric Acid 5.4 mg/dL (3.5-7.2)
[2024-10-07 10:51] LABS: Prostate Specific Antigen Scrn 0.66 ng/mL (<=4.00)
[2024-10-08 14:11] LABS: Insulin 17.1 uIU/mL (2.6-24.9)
== END 2024-10-07 09:21 | disposition home or self-care (01) ==
LOC: LAB 09:23
PROVIDERS: PCP Family Medicine; Visit Provider Family Medicine
DX: Z00.00 Encounter for general adult medical examination without abnormal findings (principal)
CPT/HCPCS: 36415; 80053; 80061; 83036; 83525; 84436; 84443; 84481; 84550; 85025; G0103

== ENCOUNTER 2024-10-30 10:21 | Emergency (ER) | payer BC, SELFPAY ==
[2024-10-30 10:42] VITALS: BP 150/93; PULSE 85; TEMP 36.8; O2SAT 95; BMI 35.3
--- NOTE | 2024-10-30 15:04 | ED_ITS ---
HPI HPI - General Adult General Chief complaint: Back Pain/Injury Stated complaint: BACK PAIN Time Seen by Provider: 10/30/24 14:32 Mode of arrival: Wheelchair History of Present Illness HPI narrative: Patient is a 43-year-old male who is presenting to the ER with chief complaint of acute on chronic lower back pain. Patient said that he was bending over last evening to do something with his dog. Patient felt a snapping sensation to his lower lumbar area, along with moderate pain. Patient has chronic right lumbar radiculopathy, right sciatica that goes down his right lower back into his right buttock and down his right lateral thigh. Patient sees Worker's Comp./occupational health office in [facility]. Patient is here with his significant other. Patient has no loss of urine or bowels yesterday or today. Patient has a longstanding injury from approximately 10 years ago. Patient has pain to the middle lower lumbar and paralumbar tenderness. Patient has no rash. Patient's had no significant trauma. No falls, car accidents. Patient however did not use any ice, heat last night or today. Patient is prescribed multiple medications from Worker's Comp. office Carlos Saleh PA-C. No headache. No chest pain or shortness of breath. No other acute complaints. There is a lengthy stay secondary to patient volume; multiple blameless apologies were given for length of stay and wait time. All systems are negative except as noted/marked. All systems reviewed and otherwise negative. Nurses note and vital signs reviewed and patient is not hypoxic. General: The patient appears no distress secondary to pain discomfort, when I walk into the room, patient is sitting upright in 90 degree angle, patient is playing games on his phone and listening to music on headphones.. Patient is resting comfortably on cart. Patient is not toxic, lethargic, or listless Skin: Warm, dry, no pallor noted. There is no rash noted. No petechiae, purpura. Head: Normocephalic, atraumatic; no new midline or paracervical tenderness to palpation. Full range of motion of cervical spine no significant or severe pain. Eye: Normal conjunctiva, no drainage, EOMI. PERRL Ears, Nose, Mouth, and Throat: oral mucosa is moist. Patient has poor dental hygiene, missing most of his teeth, no other intraoral acute signs of infection. Nares patent. Mouth without vesicles. Cardiovascular: Regular Rate and Rhythm, no murmur, gallop, rub Respiratory: Patient is in no distress, no accessory muscle use, lungs are clear to auscultation, no wheezing, rales or rhonchi Back: Patient does have moderate midline L1-L5 tenderness to palpation, patient does have moderate bilateral paralumbar tenderness to palpation, otherwise the rest of non-tender, no CVA tenderness bilaterally to percussion. No CT LS midline pain GI: Soft, obese, no tenderness to palpation, no masses appreciated. No rebound, guarding, or rigidity noted. No distention Musculoskeletal: Patient has full range of motion of all of the extremities, no motor, sensory, or focal neurological deficits Neurological: A&O x4, normal speech Psychiatric: Cooperative Related Data Home Medications ?Medication ?Instructions ?Recorded ?Confirmed baclofen 10 mg tablet 10 mg PO Q8H 10/30/24 baclofen 20 mg tablet 20 mg PO .qhs 10/30/2410/30 gabapentin 600 mg tablet 600 mg PO BID 10/30/2410/30 gabapentin 600 mg tablet 900 mg PO .qhs 10/30/2402/15 meloxicam 15 mg tablet 15 mg PO QAM 10/30/24 oxcarbazepine 150 mg tablet 150 mg PO QAM 10/30/2402/15 oxcarbazepine 300 mg tablet 300 mg PO .qhs 10/30/24 varenicline tartrate 1 mg tablet 1 mg PO BID 10/30/24 10/30/24 Previous Rx's ?Medication ?Instructions ?Recorded lidocaine 5 % topical patch 1 patch topical Q24H #15 e a 10/30/24 (Lidoderm) Allergies Allergy/AdvReac Type Severity Reaction Status Date / Time acetaminophen AdvReac Severe Anaphylaxis Verified 10/30/24 10:41 Opioid HPI Opioid Management Most Recent Opioid Data: Last Pain Scale 10 Today, 10:42 PFSH PFSH Social History Little interest or pleasure in doing things: several days Feeling down, depressed, or hopeless: not at all Exam Constitutional Vital Signs, click to edit/add: Last Vital Signs Temp 98.3 F 10/30/24 10:42 Pulse 85 10/30/24 10:42 Resp 16 10/30/24 10:42 BP 150/93 H 10/30/24 10:42 Pulse Ox 95 10/30/24 10:42 O2 Del Method Room Air 10/30/24 10:42 Course Vital Signs Vital signs: Vital Signs Temperature 98.3 F 10/30/24 10:42 Pulse Rate 85 10/30/24 10:42 Respiratory Rate 16 10/30/24 10:42 Blood Pressure 150/93 H 10/30/24 10:42 Pulse Oximetry 95 10/30/24 10:42 Oxygen Delivery Method Room Air 10/30/24 10:42 Temperature 98.3 F 10/30/24 10:42 Pulse Rate 85 10/30/24 10:42 Respiratory Rate 16 10/30/24 10:42 Blood Pressure 150/93 H 10/30/24 10:42 Pulse Oximetry 95 10/30/24 10:42 Oxygen Delivery Method Room Air 10/30/24 10:42 Medical Decision Making MDM Narrative Medical decision making narrative: Patient had a lengthy stay in the ER secondary to ER volume. Patient chief concern was a work note. Patient tries a semitractor trailer. Patient did not use any heat or ice last night. Patient took normal medications that he is prescribed last night and today. 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 Patient significant other is at bedside. She was texting and using a cell phone the entire time was in the room perform HPI and physical exam, she did not make any comments or have anything else to say except that he will need a work note for extended time off with his new injury Patient has epidurals scheduled on . Patient has an appointment Carlos Saleh PA-C on as well. Patient stated he would use ice at home, did not want any ice in the ER. Patient was given Toradol. Patient says he has anaphylaxis to Tylenol, initially ordered [place] that was canceled. Patient was prescribed lidocaine patches to continue with the rest of medications prescribed by Worker's Comp. office Discharge Plan Discharge Chief Complaint: Back Pain/Injury Clinical Impression: Lumbar back pain, Lumbar radiculopathy Patient Disposition: Home, Self-Care Time of Disposition Decision: 15:00 Condition: Fair Prescriptions / Home Meds: New lidocaine [Lidoderm] 5 % adhesive patch,medicated 1 patch topical Q24H Qty: 15 0RF Rx Instructions: leave on most painful area for up to 12 hrs No Action baclofen 10 mg tablet 10 mg PO Q8H baclofen 20 mg tablet 20 mg PO .qhs gabapentin 600 mg tablet 600 mg PO BID gabapentin 600 mg tablet 900 mg PO .qhs meloxicam 15 mg tablet 15 mg PO QAM oxcarbazepine 150 mg tablet 150 mg PO QAM oxcarbazepine 300 mg tablet 300 mg PO .qhs varenicline tartrate 1 mg tablet 1 mg PO BID Print Language: Dutch Instructions: Acute Low Back Pain (ED), Lumbar Radiculopathy (ED) Additional Instructions: Use ice 20 minutes on, 20 minutes off for the next 1 to 2 weeks. Do not use heat. Continue with all your prescribed medications. Work restrictions have been given Follow-up with your procedure of your epidural injections on . Also following back up with occupational health clinic as well at [facility] on with Carlos Saleh PA-C Referrals: Patrick Montana MD [Primary Care Provider, Family Practice] - 1 week Discharge Date/Time: 10/30/24 15:23
[2024-10-30] MEDS: KETOROLAC TROMETHAMINE 30 MG/ML VIAL IM (15:12)
== END 2024-10-30 15:23 | disposition home or self-care (01) ==
PROVIDERS: Emergency Provider Emergency Medicine; PCP Family Medicine
DX: M54.16 Radiculopathy, lumbar region (principal); M54.50 Low back pain, unspecified
CPT/HCPCS: 96372; 99284; J1885